=== PATIENT | male | born 1955 ===

== ENCOUNTER → 2016-06-09 | Outpatient (REF) ==
--- NOTE | 2016-06-09 15:44 | REP ---
LUMBAR SPINE: The bone density is normal. There is mildly severe disc space narrowing at L2-L3, L3-L4, L4-L5 and L5-S1. There is some degenerative change in the lower facets. Vascular calcifications are present in the aorta. In the pelvis, are a number of calcifications and probably calcified fibroid. IMPRESSION: Extensive degenerative disc disease of the lumbar spine. The levels of L2 through S1 are involved. Calcified uterine myomata and vascular calcifications of the aorta. Unreviewed
== END ==
LOC: M SMT 13:13
PROVIDERS: ATTEND Internal Medicine
DX: Z02.71 Encounter for disability determination (principal)